=== PATIENT | female | born 1970 | race African-American/Black ===

== ENCOUNTER 2021-05-22 15:57 | Outpatient (REF) | payer MEDICAID, SELFPAY ==
--- NOTE | ~2021-05-22 | MM_ITS ---
EXAMINATION: MM SCREENING DIGITAL BREAST TOMOSYNTHESIS, BILATERAL CLINICAL INFORMATION: Screening. Asymptomatic. Age 51. No known family history breast cancer. No prior mammography. The lifetime risk of breast cancer based on the Tyrer-Cuzick Model is 10%. COMPARISON: None (current study represents initial baseline exam). TECHNIQUE: Digital breast tomosynthesis is performed in both the craniocaudal and mediolateral oblique views along with computer-aided detection (CAD). Synthesized 2D images are generated from the tomosynthesis. FINDINGS: There are scattered areas of fibroglandular density (ACR BI-RADS breast composition Category b). There are no significant masses, abnormal calcifications, or other abnormalities. The axilla and skin contours are unremarkable. MM/MM tomosynthesis screening BI IMPRESSION: No mammographic evidence of malignancy. ASSESSMENT: BI-RADS 1: Negative RECOMMENDATION: Routine annual mammography screening. This patient's information was entered into a reminder system with a target due date for their next mammogram.
== END 2021-05-22 15:58 | disposition home or self-care (01) ==
LOC: HO.MAMMO 15:57
PROVIDERS: PCP Internal Medicine; Visit Provider Internal Medicine
DX: Z12.31 Encounter for screening mammogram for malignant neoplasm of breast (principal)
CPT/HCPCS: 77063; 77067

== ENCOUNTER 2023-04-22 11:06 | Outpatient (REF) | payer MEDICAID, SELFPAY ==
[2023-04-22 14:36] LABS: MANUAL DIFF FLAG NO
[2023-04-22 14:42] LABS: Basophils Percent Auto 0.3 % (0-2); Eosinophils Absolute Auto 0.2 X10*3/uL (0.0-0.4); Eosinophils Percent Auto 2.4 % (0-4); Hematocrit 43.1 % (37.0-47.0); Hemoglobin 14.1 g/dl (12.0-16.0); Imm Gran Abs Auto 0.02 X10*3/uL (0.00-0.03); Imm Gran Pct Auto 0.2 % (0.0-0.4); Lymphocytes Absolute Auto 2.2 X10*3/uL (1.2-4.9); Lymphocytes Percent Auto 25.1 % (20-40); Mean Corpuscular HGB Conc 32.7 g/dl (31.0-35.0); Mean Corpuscular Hemoglobin 31.7 pg (27.0-33.0); Mean Corpuscular Volume 96.9 fL (80.0-98.0); Mean Platelet Volume 10.9 fL (9.4-12.3); Monocytes Absolute Auto 0.7 X10*3/uL (0.1-1.2); Monocytes Percent Auto 7.5 % (2-11); Neutrophils Absolute Auto 5.6 x10*3/uL (2.0-8.3); Neutrophils Percent Auto 64.5 % (45-73); Platelet Count 303 X10*3/uL (160-400); Red Blood Count 4.45 X10*6/uL (4.20-5.50); Red Cell Distribution Width 13.9 % (11.0-16.0); White Blood Count 8.7 X10*3/uL (4.8-10.8)
[2023-04-22 15:12] LABS: Anion Gap 12 (12-20); Blood Urea Nitrogen 15 mg/dL (9-16); Calcium 9.6 mg/dL (8.4-10.2); Carbon Dioxide 27 mmol/L (22-29); Chloride 106 mmol/L (96-108); Estimated Glomerular Filt Rate 58; Glucose Random 74 mg/dL (60-115); Potassium 4.1 mmol/L (3.3-5.1); Sodium 141 mmol/L (135-145)
[2023-04-22 15:19] LABS: TSH reflex Free T4 1.04 uIU/mL (0.32-4.0)
== END 2023-04-22 11:07 | disposition home or self-care (01) ==
LOC: HO.CHCLDS 11:06
PROVIDERS: Visit Provider Internal Medicine
DX: E03.8 Other specified hypothyroidism (principal); L73.2 Hidradenitis suppurativa
CPT/HCPCS: 36415; 80048; 84443; 85025

== ENCOUNTER 2024-12-14 15:33 | Outpatient (REF) | payer MEDICAID, SELFPAY ==
--- OUTSIDE RECORDS SUMMARY | 2024-12-14 15:00 | XMS_ITS | Encounter Summary ---
Author Organization [employer] Address [address] [facility] 7 [place] [address] Care Team Providers Care Aircraft Technician Name Role Phone Aashish Martin MD Primary Care Prov ider Reason for Referral * Imaging (Routine) - Pending Review Specialty Diagnoses / Procedures Referred By Contac t Referred To Contact Radiology Diagnoses Other migraine without status migrainosus, not intractable Procedures CT Head w/o Contrast Kenan Sanchez MD [address] [place] [address] Phone: tel: fax: Referral ID Status Reason Start Date Expiration Date V isits Requested Visits Authorized [id number] Pending Review 12/14/2024 12/14/2025 1 1 Reason for Visit * Reason Comments Headache Encounter Details Date Type Department Care Team ([facility] Contact Info) Description 12/14/2024 3:00 PM EDT Office Visit [facility] MED [facility] PEDS [address] [place] [address] Kenan Sanchez MD [address] [place] [address] Disorder of vision (Primary Dx); Other migraine without status migrainosus, not intractable; Neck pain, acute Social History Tobacco Use Types Packs/Day Years Used Date Smoking Tobacco: Former Cigarettes 0.3 20 0 05/21/2003 - 05/21/2023 Depression Answer Date Recorded Patient Health Questionnaire-9 Score 8 05/16/2024 Patient Health Questionnaire-9 Score 8 05/16/2024 Last PHQ-9: Questionnaire Data Not on file 0 05/16/2024 Housing Stability Answer Date Recorded What is your housing situation today? I have ching barragan 08/12/[address] you li ve. Do you have problems with any of the following? None of the above 08/12/2024 Food Insecurity Answer Date Recorded Within the past 12 months, y ou worried that your food would run out before you got money to buy more: Never True 08/12/2024 Within the past 12 months,th e food you bought just didn't last and you didn't have enough money to get more: Never True Transportation Answer Date Recorded In the past 12 months, has l ack of transportation kept you from medical appts, meetings, work or from getting things needed for daily living? No 08/12/2024 Utilities Answer Date Recorded In the past 12 months, has t he electric, gas, oil or water company threatened to shut off services in your home? No 08/12/2024 Depression Answer Date Recorded Patient Health Questionnaire-2 Score 1 05/16/2024 Internet Access Answer Date Recorded Internet Access Q1 Yes 08/12/2024 Internet Access Q2 Not on file 08/12/2024 Comments Unknown Sex and Gender Information Value Date Recorded Sex Assigned at Female 01/13/2022 10:30 AM EDT Legal Sex Female 10:30 AM EDT Gender Identity Female 01/13/2022 10:30 AM EDT Sexual Orientation Choose not to disclose 2021 10:30 AM EDT documented as of this encounter Last Filed Vital Signs Vital Sign Reading Time Taken Comments Blood Pressure 149/89 12/14/2024 3:16 PM EDT Pulse 72 12/14/2024 3:16 PM EDT Temperature - - Respiratory Rate 20 12/14/2024 3:16 PM EDT Oxygen Saturation - - Inhaled Oxygen Concentration - - Weight 77.6 kg (171 lb) 12/14/2024 3:16 PM EDT Height 163 cm (5' 4.17 ) 12/14/2024 3:16 PM EDT Body Mass Index 29.2 12/14/2024 3:16 PM EDT documented in this encounter Plan of Treatment Upcoming Encounters Date Type Department Care Team (Late st Contact Info) Description 04/17/2025 2:30 PM EST Office Visit [facility] [address] [place] [address] Payton Villanueva, OD [address] [place] [address] Scheduled Orders Name Type Priority Associated Diagnoses Orde r Schedule Hemoglobin A1c Lab Routine Disorder of vision Expected: 12/14/2024 (Approximate), Expires: 12/14/2025 CT Head w/o Contrast Imaging Routine Other migraine without status migrainosus, not intractable Expected: 12/14/2024, Expires: 12/14/2025 documented as of this encounter Visit Diagnoses Diagnosis Disorder of vision- Primary Other migraine without status migrainosus, not intractable Neck pain, acute documented in this encounter Additional Health Concerns Assessment Noted Time PHQ-9 Depression Total Score: 8 05/17/19 25 11:18 AM EST documented as of this encounter Care Teams Aircraft Technician Relationship Specialty Start Date End Date Aashish Martin MD [address] [place] [id number] PCP - General Internal Medicine 08/14/19 Jennie Curtis Venetian Blind MechanicRetail Delivery Driver 08/07/23 documented as of this encounter
--- OUTSIDE RECORDS SUMMARY | 2024-12-14 16:21 | XMS_ITS | Encounter Summary ---
Author Organization [facility] Address [address] [facility] 7t [place] [address] Care Team Providers Care Fishing Rod Trimmer Name Role Phone Aashish Martin MD Primary Care Prov ider Reason for Visit * Reason Comments Med Refill Encounter Details Date Type Department Care Team (Late st Contact Info) Description 12/22/2022 Refill [facility] MEDICINE [address] [place] [address] Aashish Martin MD [address] [place] [address] Social History Tobacco Use Types Packs/Day Years Used Date Smoking Tobacco: Never Assessed Comments Unknown Sex and Gender Information Value Date Recorded Sex Assigned at Female 01/13/2022 10:30 AM EDT Legal Sex Female 10:30 AM EDT Gender Identity Female 01/13/2022 10:30 AM EDT Sexual Orientation Choose not to disclose 2021 10:30 AM EDT documented as of this encounter Plan of Treatment Upcoming Encounters Date Type Department Care Team (Late st Contact Info) Description 04/17/2025 2:30 PM EST Office Visit [facility] OPTOMETRY [address] [place] [address] TarkaPayton, OD [address] [place] [address] documented as of this encounter Visit Diagnoses Not on filedocumented in this encounter Care Teams Fishing Rod Trimmer Relationship Specialty Start Date End Date Aashish Martin MD [address] [place] [address] PCP - General Internal Medicine 08/14/19 Jennie Curtis Publicity ManagerFight Manager 08/07/23 documented as of this encounter
--- OUTSIDE RECORDS SUMMARY | 2024-12-14 16:22 | XMS_ITS | Encounter Summary ---
Author Organization [employer] Address [address] [facility] [address] 7[address] [place] [address] Care Team Providers Care Cooler Servicer Name Role Phone Aashish Martin MD Primary Care Prov ider Reason for Visit * Reason Onset Date Comments Nurse Triage 08/11/2024 Encounter Details Date Type Department Care Team ([facility] Contact Info) Description 08/11/2024 Telephone [facility] MEDICINE [address] [place] [address] Aashish Martin MD [address] [place] [address] Nurse Triage Social History Tobacco Use Types Packs/Day Years [...] AM EDT documented as of this encounter Miscellaneous Notes * Telephone Encounter - Olivia Apodaca RN - 08/11/2024 11:50 AM EDT called pt to triage, spoke to pt. pt states since going off Tirosint due to insurance issues, pt has been on Levothyroxine. pt states since being off the Tirosint, she has been having intermittent dizziness, light headedness, nausea, fatigue, and headaches. pt states has not had Thyroid lab tests for a while, and requesting to do labs to check thyroid. given TC appt tomorrow with PCP at 9L45 to discuss. advised to call back if worsening or new concerns. pt states will go to the ER in the meantime if she gets worse. given caution regarding ER visits. pt understands and agrees with plan. insurance verified. Protocol Used: Dizziness (Adult) Protocol-Based Disposition: See in Office or Video Visit within 3 Days Positive Triage Question: * Mild dizziness (e.g., walking normally) and has NOT been evaluated by physician for this (Exception: Dizziness caused by heat exposure, sudden standing, or poor fluid intake.) * All higher-acuity triage questions were negative Care Advice Discussed: * Reassurance and Education - Dizziness From Not Drinking Enough Liquids * Drink Fluids * Lie Down and Rest * Cool Off * Prevention - Dizziness * Reasons To Call Back - After 2 hours of rest and fluids and you are still feeling dizzy - You pass out (faint) or are too weak to stand - You become worse * Telephone Encounter - Romie Baer - 08/11/2024 10:46 AM EDT Symptoms: Vomiting, Dizziness Outcome: Talk to a nurse or provider within 15 minutes Reason: Trouble walking Please contact pt at [phone]. documented in this encounter Plan of Treatment Upcoming Encounters Date Type Department Care Team (Late st Contact Info) Description 04/17/2025 2:30 PM EST Office Visit [facility] OPTOMETRY [address] [place] [address] Payton Villanueva, OD [address] [place] [address] documented as of this encounter Visit Diagnoses Not on filedocumented in this encounter Additional Health Concerns Assessment Noted Time PHQ-9 Depression Total Score: 8 05/17/19 25 11:18 AM EST documented as of this encounter Care Teams Cooler Servicer Relationship Specialty Start Date End Date Aashish Martin MD [address] [place] [address] PCP - General Internal Medicine 08/14/19 Jennie Curtis Geospatial Image AnalystLang Path Therapist 08/07/23 documented as of this encounter
--- OUTSIDE RECORDS SUMMARY | 2024-12-14 16:22 | XMS_ITS | Encounter Summary ---
Author Organization [employer] Address [address] [facility] [address] 7[address] [place] [address] Care Team Providers Care Bridge Repairer Name Role Phone Aashish Martin MD Primary Care Prov ider Encounter Details Date Type Department Care Team (Latest Contact Info) Description 12/14/2024 Travel Social History Tobacco Use Types Packs/Day Years Used Date Smoking Tobacco: Former Cigarettes 0.3 20 0 05/21/2003 - 05/21/2023 Depression Answer Date Recorded Patient Health Questionnaire-9 Score 8 05/16/2024 Patient Health Questionnaire-9 Score 8 05/16/2024 Last PHQ-9: Questionnaire Data Not on file 0 05/16/2024 Housing Stability Answer Date Recorded What is your housing situation today? I have ching laurel 08/12/[address] you li [...] Description 04/17/2025 2:30 PM EST Office Visit [facility] OPTOMETRY [address] [place] [address] TarkaPayton, OD [address] [place] [address] documented as of this encounter Visit Diagnoses Not on filedocumented in this encounter Additional Health Concerns Assessment Noted Time PHQ-9 Depression Total Score: 8 05/17/19 25 11:18 AM EST documented as of this encounter Care Teams Bridge Repairer Relationship Specialty Start Date End Date Aashish Martin MD [address] [place] [address] PCP - General Internal Medicine 08/14/19 Jennie Curtis Layer OffRenal Dialysis Rn 08/07/23 documented as of this encounter
--- OUTSIDE RECORDS SUMMARY | 2024-12-14 16:22 | XMS_ITS | Encounter Summary ---
Author Organization [employer] Address [address] [facility] [address] 7t [place] [address] Care Team Providers Care Associate School Psychologist Name Role Phone Aashish Martin MD Primary Care Prov ider Reason for Visit * Reason Onset Date Comments No Show 12/14/2024 Encounter Details Date Type Department Care Team ([facility] Contact Info) Description 12/14/[address] [facility] MEDICINE [address] [place] [address] Kenan Sanchez MD [address] [place] [address] No Show Social History Tobacco Use Types Packs/Day Years [...] encounter Miscellaneous Notes * Telephone Encounter - Alyssa Allen RN - 12/14/2024 12:01 PM EDT TC to pt to status check after NS to appointment this morning for headaches and bruising under lefteye. Pt stated that she is currently on her way into the office for her appointment she states is at 12:30 PM. Author advised that office is closed at 12:30 PM and can rescheduled missed appointment for SDC at 3 PM today. Pt verbalized understanding and agreement to plan * Telephone Encounter - Alvino Hauser - 12/14/2024 11:37 AM EDT No show 12/14/24 documented in this encounter Plan of Treatment Upcoming Encounters Date Type Department Care Team (Late st Contact Info) Description 04/17/2025 2:30 PM EST Office Visit [facility] [address] [place] [address] Payton Villanueva, OD [address] [place] [address] documented as of this encounter Visit Diagnoses Not on filedocumented in this encounter Additional Health Concerns Assessment Noted Time PHQ-9 Depression Total Score: 8 05/17/19 25 11:18 AM EST documented as of this encounter Care Teams Associate School Psychologist Relationship Specialty Start Date End Date Aashish Martin MD [address] [place] [address] PCP - General Internal Medicine 08/14/19 Jennie Curtis Collections DirectorWedding Cake Designer 08/07/23 documented as of this encounter
--- OUTSIDE RECORDS SUMMARY | 2024-12-14 16:22 | XMS_ITS | Encounter Summary ---
Author Organization [employer] Address [address] [facility] 7t [place] [address] Care Team Providers Care Acid Concentrator Name Role Phone Aashish Martin MD Primary Care Prov ider Reason for Visit * Reason Onset Date Comments ER Follow-up 07/15/2023 Encounter Details Date Type Department Care Team ([facility] st Contact Info) Description 07/15/[address] [facility] MEDICINE [address] [place] [address] Aashish Martin MD [address] [place] [address] ER Follow-up Social History Tobacco Use Types Packs/Day Years Used Date Smoking Tobacco: Former Cigarettes 0.3 20 0 05/21/2003 - 05/21/2023 Comments Unknown Sex and Gender Information Value Date Recorded Sex Assigned at Female 01/13/2022 10:30 AM EDT Legal Sex Female 10:30 AM EDT Gender Identity Female 01/13/2022 10:30 AM EDT Sexual Orientation Choose not to disclose 2021 10:30 AM EDT documented as of this encounter Miscellaneous Notes * Telephone Encounter - Wing Mikey RN - 07/15/2023 12:23 PM EDT Tc to pt regarding ED visit. Pt repots itchy rash on both arms and chest that started on 07/08 afterdrinking dragon fruit drink from [employer]. Denies any rash on throat or trouble breathing. Confirmed with pt current allergies of dimethylamine and shrimp extract. Pt went to [facility] but left before being seen by any provider so there is no ED note. Rash is still present and itchy now. Pt only has been putting hydrocortisone cream on rashes with little relief. Scheduled pt today with Dr. Patino for 3:40 pm. Advised pt to go back to ED if rash is on her throat or she has trouble breathing. Pt verbalized understanding and agreement with plan. * Telephone Encounter - Andrey Raya - 07/15/2023 11:09 AM EDT Patient calling to report ED visit on : Date: 07/08 Hospital: [facility] Seen for: Allergic reaction , rashes Patient advised will forward to team nurse for follow up documented in this encounter Plan of Treatment Upcoming Encounters Date Type Department Care Team (Late st Contact Info) Description 04/17/2025 2:30 PM EST Office Visit [facility] OPTOMETRY [address] [place] [address] Payton Villanueva, OD [address] [place] [address] documented as of this encounter Visit Diagnoses Not on filedocumented in this encounter Care Teams Acid Concentrator Relationship Specialty Start Date End Date Aashish Martin MD [address] [place] [id number] PCP - General Internal Medicine 08/14/19 Jennie Curtis Nuclear Waste Process OperatorReference Librarian 08/07/23 documented as of this encounter
--- OUTSIDE RECORDS SUMMARY | 2024-12-14 16:22 | XMS_ITS | Encounter Summary ---
Author Organization [employer] Address [address] [facility] 7t [place] [address] Care Team Providers Care Featherer Name Role Phone Aashish Martin MD Primary Care Prov ider Reason for Referral * Imaging (Routine) - Closed Specialty Diagnoses / Procedures Referred By Contac t Referred To Contact Radiology Diagnoses Subareolar mass of right breast Procedures BI Mammogram Diagnostic Tomosynthesis added right Kenan Sanchez MD [address] [place] [address] Phone: tel: fax: [address] Phone: tel: fax: Referral ID Status Reason Start Date Expiration Date Visits Re quested Visits Authorized [id number] Closed 07/20/2024 07/20/2025 1 1 Encounter Details Date Type Department Care Team (Late st Contact Info) Description 07/20/2024 Orders Only [facility] CHC MED & PEDS [address] [place], [place] [phone] Kenan Sanchez MD [address] [place], [place] [phone] Subareolar mass of right breast (Primary Dx) Social History Tobacco Use Types Packs/Day Years Used Date Smoking Tobacco: Former Cigarettes 0.3 20 0 05/21/2003 - 05/21/2023 Depression Answer Date Recorded Patient Health Questionnaire-9 Score 8 05/16/2024 Patient Health Questionnaire-9 Score 8 05/16/2024 Last PHQ-9: Questionnaire Data Not on file 0 05/16/2024 Depression Answer Date Recorded Patient Health Questionnaire-2 Score 1 05/16/2024 Comments Unknown Sex and Gender Information Value [...] Description 04/17/2025 2:30 PM EST Office Visit [facility] OPTOMETRY [address] [place], [place] [id number] Payton Villanueva, OD [address] [place] [address] Scheduled Orders Name Type Priority Associated Diagnoses Orde r Schedule BI Mammogram Diagnostic Tomosynthesis added right Imaging Routine Subareolar mass of right breast Expected: 07/20/2024, Expires: 09/19/2025 documented as of this encounter Visit Diagnoses Diagnosis Subareolar mass of right breast- Primary documented in this encounter Additional Health Concerns Assessment Noted Time PHQ-9 Depression Total Score: 8 05/17/19 25 11:18 AM EST documented as of this encounter Care Teams Featherer Relationship Specialty Start Date End Date Aashish Martin MD [address] [place] [address] PCP - General Internal Medicine 08/14/19 Jennie Curtis Food And Beverage AssociateIt Quality Assurance Analyst 08/07/23 documented as of this encounter
--- OUTSIDE RECORDS SUMMARY | 2024-12-14 16:22 | XMS_ITS | Clinical Summary ---
Author Organization [employer] Address [address] [facility] 7t [place] [address] Care Team Providers Care Renewable Energy Consultant Name Role Phone Aashish Martin MD Primary Care Prov ider Allergies Active Allergy Reactions Criticality Noted Date Comments 2,4-D Dimethylamine 12/30/2022 Other reaction(s): itchy Amoxicillin 10/14/2023 Other Reaction(s): severe itching Cephalexin Itching 10/29/2020 Hydrocodone 01/17/2016 Hydrocodone-Acetaminophen 02/14/2011 Other Reaction(s): OTHER, Rash/Dermatitis Ringing ears Ketorolac Tromethamine 10/14/2023 Other Reaction(s): itching Pineapple 10/14/2023 Shrimp Extract 12/30/2022 Sulfamethoxazole 02/22/2016 Other Reaction(s): Unknown Sulfamethoxazole-Trimethoprim Itching 2020 Tramadol Swelling 10/07/2011 Other Reaction(s): severe headache Trimethoprim 02/22/2016 Other Reaction(s): Unknown Medications cholecalcifero l (Vitamin D3) 25 MCG (1000 UT) tablet TAKE 1 TABLET BY MOUTH DAILY 30 tablet 2 08/08/19 23 Active cholecalcifero l (Vitamin D3) 25 MCG (1000 UT) tablet TAKE 1 TABLET BY MOUTH DAILY 02/02/20 22 Active venlafaxine XR (Effexor XR) 37.5 MG 24 hr capsuleIndicat ions:Menopausa l symptoms Take 1 capsule (37.5 mg) by mouth in the morning. Do not crush or chew. 30 capsule 11 12/31/19 23 Active doxycycline (Vibramycin) 100 MG capsuleIndicat ions:Hidradeni tis suppurativa of multiple sites Take 1 capsule (100 mg) by mouth 2 times daily. Take with at least 8 ounces (large glass) of water, do not lie down for 30 minutes after 60 capsule 3 05/17/19 25 Active levothyroxine (Synthroid) 100 MCG tablet Take 1 tablet (100 mcg) by mouth before breakfast. 30 tablet 11 07/19/19 25 Active Chlorhexidine Gluconate (Hibiclens) 4 % solutionIndica tions:Follicul itis Apply to wet area, let the medication in place x a few minutes and rinse thoroughly 2 times a day. 118 mL 1 07/20/19 25 Active gabapentin (Neurontin) 800 MG tablet TAKE 1 TABLET BY MOUTH THREE TIMES DAILY 90 tablet 1 09/10/19 25 Active traZODone (Desyrel) 50 MG tablet TAKE 1 TABLET(50 MG) BY MOUTH AT BEDTIME 30 tablet 11/19/19 25 Active SUMAtriptan (Imitrex) 50 MG tabletIndicati ons:Disorder of vision Take 1 tablet (50 mg) by mouth 1 (one) time if needed for migraine for up to 1 dose. May repeat dose once in 2 hours if no relief. Do not exceed 2 doses in 24 hours. 9 tablet 12/15/19 25 Active tiZANidine (Zanaflex) 4 MG tabletIndicati ons:Disorder of vision Take 1 tablet (4 mg) by mouth every 8 (eight) hours if needed for muscle spasms for up to 10 days. 30 tablet 12/15/19 25 025 Active capsaicin (Zostrix) 0.025 % creamIndicatio ns:Neck pain, acute Apply topically 2 times daily. 56.6 g 3 12/15/19 25 026 Active SUMAtriptan (Imitrex) 50 MG tablet Take 1 tablet (50 mg) by mouth 1 (one) time if needed for migraine for up to 1 dose. May repeat dose once in 2 hours if no relief. Do not exceed 2 doses in 24 hours. 9 tablet 10/14/19 25 025 Discontinued(Re order (will not trigger notification to Pharmacy)) traZODone (Desyrel) 50 MG tablet Take 1 tablet (50 mg) by mouth at bedtime. 30 tablet 10/14/19 25 025 Discontinued Active Problems Problem Noted Date Diagnosed Date Ingrown toenail 10/13/2024 Assessment & Plan (10/13/2024 10:35 AM EDT): Will refer to podiatry for evaluation Abnormal gait 10/14/2023 Depressive disorder 10/14/2023 Disorder of vision 10/14/2023 History of hysterectomy for benign disease 10/13 History of subtotal thyroidectomy 10/14/2023 Multiple joint pain 10/14/2023 Nicotine dependence 10/14/2023 Obstructive sleep apnea syndrome 10/14/2023 Hidradenitis suppurativa of multiple sites 04/22 Other specified hypothyroidism 04/22/2023 Assessment & Plan (08/26/2024 11:23 AM EDT): Will renew thyroid hormone replacement, told to take it daily, new lab orders placed, follow up In 2 months Primary osteoarthritis of fi rst carpometacarpal joint of right hand 06/16/2022 Paronychia of right thumb 04/22/2021 Trigger finger of all digits of right hand 04/22 Opiate misuse 02/27/2015 Overview (10/14/2023): NO FURTHER OPIATE BY [facility] DUE TO MISUSE OF OPIATE. FOR DETAILS SEE CORRESPONDENCE FROM 02/27/15. Dysphagia 06/19/2011 Overview (10/14/2023): Achalasia like disorder--> Cuba Mack MD. H. 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 Cocaine abuse 01/16/2009 Substance abuse (CMS/[facility]) 01/16/2009 Overview (10/14/2023): 01/22 UDS + cocaine, marijuana Tobacco use disorder 01/16/2009 Hypothyroidism 01/16/2009 Encounters Date Type Department Care Team Description 12/14/2024 3:00 PM EDT Office Visit [facility] MED & PEDS [address] [place] [address] Kenan Sanchez MD Disorder of vision (Primary Dx); Other migraine without status migrainosus, not intractable; Neck pain, acute 12/14/2024 Travel 12/14/2024 Telephone [facility] [address] [place] [address] Kenan Sanchez MD No Show 12/12/2024 Telephone [facility] [address] [place] [address] Aashish Martin MD Nurse Triage 11/18/2024 Refill [facility] PEDS [address] [place] [address] Aashish Martin MD 10/13/2024 10:15 AM EDT Telemedicine [facility] MED & PED[facility] [address] [place] [address] Aashish Martin MD Acquired hypothyroidism (Primary Dx); Ingrown toenail 10/13/2024 Travel 10/12/2024 Telephone [facility] MED & PEDS [address] [place] [address] Aashish Martin MD chart prep from Last 3 Months Social History Tobacco Use Types Packs/Day Years Used Date Smoking Tobacco: Former Cigarettes 0.3 20 0 05/21/2003 - 05/21/2023 Tobacco Cessation:Counseling Given: Not Answered Depression Answer Date Recorded Patient Health Questionnaire-9 [...] not to disclose 2021 10:30 AM EDT Last Filed Vital Signs Vital Sign Reading Time Taken Comments Blood Pressure 149/89 12/14/2024 3:16 PM EDT Pulse 72 12/14/2024 3:16 PM EDT Temperature 36.7 C (98 F) 07/19/2024 2:29 PM EDT Respiratory Rate 20 12/14/2024 3:16 PM EDT Oxygen Saturation 97% 07/19/2024 2:29 PM EDT Inhaled Oxygen Concentration - - Weight 77.6 kg (171 lb) 12/14/2024 3:16 PM EDT Height 163 cm (5' 4.17 ) 12/14/2024 3:16 PM EDT Body Mass Index 29.2 12/14/2024 3:16 PM EDT Plan of Treatment Upcoming Encounters Date Type Department Care Team (Late st Contact Info) Description 04/17/2025 2:30 PM EST Office Visit [facility] [address] [place], [place] [phone] Payton Villanueva, OD [address] [place] [address] Health Maintenance Due Date Last Done Comments CT Colonography 1969 Colonoscopy 1969 Colorectal Cancer Screening 1969 FIT DNA/Cologuard 1969 FIT 1969 FOBT 1969 HIV Screening 1969 Sigmoidoscopy 1969 Disability Screening 1969 Hepatitis C Screening 1987 DTaP/Tdap/Td Vaccines (1 - Tdap) 1988 Hepatitis B Vaccines (1 of 3 - 19+ 3-dose series) 1988 Pap Smear 1990 Cervical Cancer Screening 1999 HPV/Cotest 1999 Pneumococcal Vaccine: 50+ Years (1 of 1 - PCV) 2019 Zoster Vaccines (1 of 2) 2019 Mammogram 06/08/2024 06/09/2023, 05/22/2021 COVID-19 Vaccine (4 - 2024-2 6 season) 2024 05/15/2022, 10/23/2020, 10/02/2020 Influenza Vaccine (#1) 2024 Alcohol/Substance Use Screening 05/16/2025 05/16/2024 Depression Screening 05/16/2025 05/16/2024, 05/16/2024 Tobacco Screening 07/20/2025 07/20/2024 SDOH Screening 08/12/2025 08/12/2024 RSV Patients and Patients Aged 60 years or older (1 - 1-dose 75+ series) 2044 HIB Vaccines Aged Out No longer eligi ble based on patient's age to complete this topic HPV Vaccines Aged Out No longer eligi ble based on patient's age to complete this topic Hepatitis A Vaccines Aged Out No long er eligible based on patient's age to complete this topic IPV Vaccines Aged Out No longer eligi ble based on patient's age to complete this topic Meningococcal B Vaccine Aged Out No l onger eligible based on patient's age to complete this topic Meningococcal Vaccine Aged Out No fuentes monique eligible based on patient's age to complete this topic RSV under 20 months Aged Out No longe r eligible based on patient's age to complete this topic Rotavirus Vaccines Aged Out No longer eligible based on patient's age to complete this topic Procedures Procedure Name Priority Date/Time Associated Diagnosis Comments BI US BREAST LIMITED RIGHT Urgent 06/09/2023 Breast pain, right from Last 3 Months or Most Recently Relevant to Health Maintenance Results * BI US Breast Limited Right (06/09/2023) Anatomical Region Laterality Modality Breast Right Ultrasound us Kenan Sanchez MD [facility] US PROCEDURES Final Res ult from Last 3 Months or Most Recently Relevant to Health Maintenance Insurance C3 Care Teams Renewable Energy Consultant Relationship Specialty Start Date End Date Aashish Martin MD [address] [place] [id number] PCP - General Internal Medicine 08/14/19 Jennie Curtis Sheet Metal Shop ForemanMarble Cleaner 08/07/23
--- OUTSIDE RECORDS SUMMARY | 2024-12-14 16:22 | XMS_ITS | Encounter Summary ---
Author Organization [employer] Address [address] [facility] 7t [place] [address] Care Team Providers Care Warper Tender Name Role Phone Aashish Martin MD Primary Care Prov ider Encounter Details Date Type Department Care Team (Late Contact Info) Description 04/09/2022 Orders Only [facility] [address] [place] [address] Aashish Martin MD [address] [place], [place] [phone] Acquired hypothyroidism (Primary Dx) Social History Tobacco Use Types [...] Encounters Date Type Department Care Team (Late Contact Info) Description 04/17/2025 2:30 PM EST Office Visit [facility] OPTOMETRY [address] [place] [address] TarPayton gaytan, OD [address] [place] [address] documented as of this encounter Visit Diagnoses Diagnosis Acquired hypothyroidism- Primary Unspecified hypothyroidism documented in this encounter Care Teams Warper Tender Relationship Specialty Start Date End Date Aashish Martin MD [address] [place], [place] [phone] PCP - General Internal Medicine 08/14/19 Jennie Curtis Welfare Eligibility WorkerRod Puller And Coiler 08/07/23 documented as of this encounter
--- OUTSIDE RECORDS SUMMARY | 2024-12-14 16:22 | XMS_ITS | Encounter Summary ---
Author Organization [employer] Address [address] [place] [address] 7t [place] [address] Care Team Providers Care Carbide Powder Processor Name Role Phone Aashish Martin MD Primary Care Prov ider Reason for Visit * Reason Comments Med Refill Encounter Details Date Type Department Care Team (Late Contact Info) Description 08/20/2023 Refill [facility]EDS [address] [place], [place] [phone] Aashish Martin MD [address] [place], [place] [phone] Social History Tobacco Use Types Packs/Day Years [...] Description 04/17/2025 2:30 PM EST Office Visit [facility] OPT[facility] [address] [place], [place] [phone] Payton Villanueva OD [address] [place] [address] documented as of this encounter Visit Diagnoses Not on filedocumented in this encounter Care Teams Carbide Powder Processor Relationship Specialty Start Date End Date Aashish Martin MD [address] [place] [address] PCP - General Internal Medicine 08/14/19 Jennie Curtis Customer Relations AssistantWeather Stripper 08/07/23 documented as of this encounter
--- OUTSIDE RECORDS SUMMARY | 2024-12-14 16:22 | XMS_ITS | Encounter Summary ---
Author Organization [employer] Address [address] [facility] 7t [place] [address] Care Team Providers Care Weed Inspector Name Role Phone Aashish Martin MD Primary Care Prov ider Encounter Details Date Type Department Care Team (Late st Contact Info) Description 08/07/2022 Orders Only [facility] MED & PEDS [address] [place] [address] Tete Wallace LPN Social History Tobacco Use Types Packs/Day Years [...] Description 04/17/2025 2:30 PM EST Office Visit [facility] OPTOM[facility]RY [address] [place] [address] Payton Villanueva, OD [address] [place] [address] documented as of this encounter Visit Diagnoses Not on filedocumented in this encounter Care Teams Weed Inspector Relationship Specialty Start Date End Date Aashish Martin MD [address] [place] [address] PCP - General Internal Medicine 08/14/19 Jennie Curtis Suit AttendantSales Operations Specialist 08/07/23 documented as of this encounter
--- OUTSIDE RECORDS SUMMARY | 2024-12-14 16:22 | XMS_ITS | Encounter Summary ---
Author Organization [employer] Address [address] [facility] 7t [place] [address] Care Team Providers Care Orthopedic Dentist Name Role Phone Aashish Martin MD Primary Care Prov ider Encounter Details Date Type Department Care Team (Late st Contact Info) Description 07/18/2024 Orders Only [facility] [address] [place] [address] Aashish Martin MD [address] [place] [address] Social History Tobacco Use Types Packs/Day Years [...] Description 04/17/2025 2:30 PM EST Office Visit [facility] [address] [place] [address] Payton Villanueva, OD [address] [place] [address] documented as of this encounter Visit Diagnoses Not on filedocumented in this encounter Additional Health Concerns Assessment Noted Time PHQ-9 Depression Total Score: 8 05/17/19 25 11:18 AM EST documented as of this encounter Care Teams Orthopedic Dentist Relationship Specialty Start Date End Date Aashish Martin MD [address] [place] [address] PCP - General Internal Medicine 08/14/19 Jennie Curtis Rivet TosserDirector Of Enrollment 08/07/23 documented as of this encounter
--- OUTSIDE RECORDS SUMMARY | 2024-12-14 16:22 | XMS_ITS | Encounter Summary ---
Author Organization [employer] Address [address] [place] [address] 7t [place] [address] Care Team Providers Care Mill Operator Head Name Role Phone Aashish Martin MD Primary Care Prov ider Reason for Visit * Reason Comments Med Refill Encounter Details Date Type Department Care Team (Late Contact Info) Description 06/13/2024 Refill [facility] MED & PEDS [address] [place], [place] [phone] Aashish Martin MD [address] [place], [place] [phone] Acquired hypothyroidism Social History Tobacco Use Types Packs/Day Years [...] PM EST Office Visit [facility] [address] [place], [place] [phone] Payton Villanueva, OD [address] [place], [place] [phone] documented as of this encounter Visit Diagnoses Diagnosis Acquired hypothyroidism Unspecified hypothyroidism documented in this encounter Additional Health Concerns Assessment Noted Time PHQ-9 Depression Total Score: 8 05/17/19 25 11:18 AM EST documented as of this encounter Care Teams Mill Operator Head Relationship Specialty Start Date End Date Aashish Martin MD [address] [place] [address] PCP - General Internal Medicine 08/14/19 Jennie Curtis Manager MembershipField Adjuster 08/07/23 documented as of this encounter
--- OUTSIDE RECORDS SUMMARY | 2024-12-14 16:22 | XMS_ITS | Encounter Summary ---
Author Organization [employer] Address [address] [facility] [address] 7t [place] [address] Care Team Providers Care Restaurant Mgr Name Role Phone Aashish Martin MD Primary Care Prov ider Reason for Visit * Reason Onset Date Comments Nurse Triage 12/12/2024 Encounter Details Date Type Department Care Team ([facility] st Contact Info) Description 12/12/2024 Telephone [facility] [address] [place] [address] Aashish Martin MD [address] [place] [address] Nurse Triage Social History Tobacco Use Types [...] Telephone Encounter - Olivia Apodaca RN - 12/12/2024 2:18 PM EDT called pt to triage, spoke to pt. pt states several days duration of increasing headaches. pt states mild bruising under her left eye with tearing. pt denies known injury, illness symptoms, blurred vision, fevers, severe pain, vomiting, or other associated symptoms. given appt with [facility] provider Thursday at 11:30 for exam. advised home care: rest, fluids, OTC as needed Imitrex as needed and call back if worsening or new concerns. pt understands and agrees with plan. insurance verified. Protocol Used: Headache (Adult) Protocol-Based Disposition: See in Office or Video Visit within 3 Days Video visit offer not recorded Positive Triage Question: * Mild - Moderate headache present > 3 days (72 hours) * All higher-acuity triage questions were negative Care Advice Discussed: * Reassurance and Education - Migraine Headache * Pain Medicine for Migraine * Pain Medicines * Pain Medicines - Extra Notes and Warnings * Rest for Migraine Headache * Cold Pack for Headache * Headache Diary * Reasons To Call Back - Severe headache lasts over 2 hours after pain medicine - Headache lasts over 72 hours - Stiff neck occurs (can't touch chin to chest) - You become worse * Telephone Encounter - Carmen Luque - 12/12/2024 2:01 PM EDT Symptom: Headache Outcome: Transfer to a nurse or provider NOW! Reason: Sudden worst headache of life now The caller accepted this outcome. Contact pt at [phone] documented in this encounter Plan of Treatment Upcoming Encounters Date Type Department Care Team (Late st Contact Info) Description 04/17/2025 2:30 PM EST Office Visit [facility] OPT[facility] [address] [place], [place] [phone] Payton Villanueva, OD [address] [place] [address] documented as of this encounter Visit Diagnoses Not on filedocumented in this encounter Additional Health Concerns Assessment Noted Time PHQ-9 Depression Total Score: 8 05/17/19 25 11:18 AM EST documented as of this encounter Care Teams Restaurant Mgr Relationship Specialty Start Date End Date Aashish Martin MD [address] [place] [address] PCP - General Internal Medicine 08/14/19 Jennie Curtis Visual Merchandising AssistantPress Operator Carbon Products 08/07/23 documented as of this encounter
--- OUTSIDE RECORDS SUMMARY | 2024-12-14 16:22 | XMS_ITS | Encounter Summary ---
Author Organization [employer] Address 75 [facility] 7t [place] [address] Care Team Providers Care Physician Assistant Name Role Phone Aashish Martin MD Primary Care Prov ider Reason for Visit * Reason Onset Date Comments ER Follow-up 09/08/2022 Encounter Details Date Type Department Care Team ([facility] st Contact Info) Description 09/08/2022 Telephone [facility] MED & PEDS [address] [place], [place] [phone] Aashish Martin MD [address] [place] [address] ER Follow-up Social History Tobacco Use Types [...] encounter Miscellaneous Notes * Telephone Encounter - Josette Cruz RN - 09/12/2022 10:48 AM EDT T/C to [phone] for below message, pt. Had ED visit at [facility] on 09/02 for Abscess on right leg. Pt. Was schedule for Ed visit on 09/19/2022. Pt. Advised to go to nearest Ed in case of anynew or returning symptoms. Ed summery is in pt.'s chart. [facility] centers hours are reviewed. Pt. Verbally agreed and understood. * Telephone Encounter - Erin Guerrero - 09/08/2022 4:30 PM EDT [facility] pt was seen at [facility] on 09/02/22 and was diagnosed with an abscess on her right leg. Was prescribed two antibiotics but pt is allergic to one of the antibiotics. Requesting a f/u with pt in regards to antibiotics and if a different medication can be given. Please contact pt at [phone] documented in this encounter Plan of Treatment Upcoming Encounters Date Type Department Care Team (Late st Contact Info) Description 04/17/2025 2:30 PM EST Office Visit [facility] OPTOM[facility] [address] [place], [place] [phone] TarPayton gaytan, OD [address] [place] [address] documented as of this encounter Visit Diagnoses Not on filedocumented in this encounter Care Teams Physician Assistant Relationship Specialty Start Date End Date Aashish Martin MD [address] [place] [address] PCP - General Internal Medicine 08/14/19 Jennie Curtis Battery Charger TesterMercerizing Range Controller 08/07/23 documented as of this encounter
--- OUTSIDE RECORDS SUMMARY | 2024-12-14 16:22 | XMS_ITS | Encounter Summary ---
Author Organization [employer] Address 75 [facility] 7t [place] [address] Care Team Providers Care Senior Tax Accountant Name Role Phone Aashish Martin MD Primary Care Prov ider Reason for Referral * Imaging (Routine) - Closed Specialty Diagnoses / Procedures Referred By Contmendoza t Referred To Contact Radiology Diagnoses Breast pain, right Procedures US Guided Fluid Drainage Kenan Sanchez MD [address] [place] [address] Phone: tel: fax: Referral ID Status Reason Start Date Expiration Date Visits Re quested Visits Authorized [id number] Closed 06/11/2023 06/10/2024 1 1 Encounter Details Date Type Department Care Team (Late st Contact Info) Description 06/11/2023 Orders Only [facility] MED & PEDS [address] [place] [address] Kenan Sanchez MD [address] [place] [address] Breast pain, right (Primary Dx) Social History Tobacco Use Types [...] EST Office Visit [facility] [address] [place] [address] Payton Villanueva, OD [address] [place] [address] documented as of this encounter Procedures Procedure Name Priority Date/Time Associated Diagnosis Comments US GUIDED FLUID DRAINAGE Routine 06/12/2023 Breast pain, right documented in this encounter Results * US Guided Fluid Drainage (06/12/2023) Anatomical Region Laterality Modality Ultrasound us Kenan Sanchez MD IMG US PROCEDURES Final Res ult documented in this encounter Visit Diagnoses Diagnosis Breast pain, right- Primary documented in this encounter Care Teams Senior Tax Accountant Relationship Specialty Start Date End Date Aashish Martin MD [address] [place] [address] PCP - General Internal Medicine 08/14/19 Jennie Curtis Security EscortPoolroom/Poolhall Manager 08/07/23 documented as of this encounter
--- OUTSIDE RECORDS SUMMARY | 2024-12-14 16:22 | XMS_ITS | Encounter Summary ---
Author Organization [employer] Address [address] [facility] 7t [place] [address] Care Team Providers Care Corrugator Operator Name Role Phone Aashish Martin MD Primary Care Prov ider Encounter Details Date Type Department Care Team (Late Contact Info) Description 12/31/2022 Orders Only [facility] MED [facility] PEDS [address] [place], [place] [phone] Aashish Martin MD [address] [place], [place] [phone] Social History Tobacco Use Types Packs/Day Years Used Date Smoking Tobacco: Unknown Comments Unknown Sex and Gender Information Value [...] EST Office Visit [facility] OPTOMETRY [address] [place] [address] Tarka, Payton, OD [address] [place] [address] documented as of this encounter Visit Diagnoses Not on filedocumented in this encounter Care Teams Corrugator Operator Relationship Specialty Start Date End Date Aashish Martin MD [address] [place] [address] PCP - General Internal Medicine 08/14/19 Jennie Curtis Funeral CounselorHome Appliances Mechanic 08/07/23 documented as of this encounter
--- OUTSIDE RECORDS SUMMARY | 2024-12-14 16:22 | XMS_ITS | Encounter Summary ---
Author Organization [employer] Address [address] [facility] [address] [place] [address] Care Team Providers Care Victims Advocate Clerk/Specialist Name Role Phone Aashish Martin MD Primary Care Prov ider Reason for Visit * Reason Onset Date Comments Prior Authorization 06/13/2024 Encounter Details Date Type Department Care Team ([facility] st Contact Info) Description 06/13/2024 Telephone [facility] MEDIC[facility] [address] [place] [address] Aashish Martin MD [address] [place] [address] Prior Authorization Social History Tobacco Use Types Packs/Day Years [...] encounter Miscellaneous Notes * Telephone Encounter - Nancy Tripathi LPN - 06/17/2024 10:28 AM EDT Please change medication to Tirosint 100 MCG TABLET for 20 tab for 30 day Please discontinue current medication . Tc from Pharmacy stating that medication Tirosint 100 MCG capsule. Will be needing a PA. Contact Pharmacy at [phone] * Telephone Encounter - Iker Hitchcock - 06/13/2024 2:12 PM EDT Tc from Pharmacy stating that medication Tirosint 100 MCG capsule. Will be needing a PA. Contact Pharmacy at [phone] documented in this encounter Plan of Treatment Upcoming Encounters Date Type Department Care Team (Late st Contact Info) Description 04/17/2025 2:30 PM EST Office Visit [facility] OPTOMETRY [address] [place], [place] [id number] Tar[place] gaytan, OD [address] [place] [address] documented as of this encounter Visit Diagnoses Not on filedocumented in this encounter Additional Health Concerns Assessment Noted Time PHQ-9 Depression Total Score: 8 05/17/19 25 11:18 AM EST documented as of this encounter Care Teams Victims Advocate Clerk/Specialist Relationship Specialty Start Date End Date Aashish Martin MD [address] [place] [id number] PCP - General Internal Medicine 08/14/19 [facility] [employer] ExecutiveAccountant Certified Public 08/07/23 documented as of this encounter
--- OUTSIDE RECORDS SUMMARY | 2024-12-14 16:22 | XMS_ITS | Clinical Summary ---
Author Organization [address] [place] [address] Address [address] [place] [address] Phone Care Team Providers Care Disc Ruler Operator Name Role Phone Aashish Martin Primary Care Provide r Surgical History Surgery Date Site/Laterality Comments OTHER SURGICAL HISTORY PROCEDURE: [place] DILATION & CURETTAGE DX&/THER NONOBSTETRIC OTHER SURGICAL HISTORY 12/21 PROCEDURE: ---- OTHER ----; COMMENT: ?hyperthyroidism surgery ESOPHAGOGASTRODUODENOSCOPY 01/25/10 Eva PROCEDURE: [place] ESOPHAGOGASTRODUODENOSCOPY TRANSORAL DIAGNOSTIC; COMMENT: normal CARPAL TUNNEL RELEASE 08/27/2020 Right PROCEDURE: [place] NEUROPLASTY &/TRANSPOS MEDIAN NRV CARPAL TUNNE; COMMENT: Right eCTR with Dr. Abel Medical History Medical History Date Comments H. pylori infection 06/19/2011 DX:H. pylori infection Dysphagia 06/19/2011 DX:Dysphagia Family History Medical History Relation Name Comments Diabetes Maternal Grandmother Hypertension Maternal Grandmother Thyroid disease Maternal Grandmother Hypertension Mother Relation Name Status Comments Maternal Grandmother Mother Social History Tobacco Use Types Packs/Day Years Used Date Smoking Tobacco: Former Cigarettes Q uit: 11/14/2010 Smokeless Tobacco: Former Alcohol Use Standard Drinks/Week Comments No 0 (1 standard drink = 0.6 oz pur e alcohol) Comments Unknown Sex and Gender Information Value Date Recorded Sex Assigned at Not on file Legal Sex Female 6:21 PM EST Gender Identity Not on file Sexual Orientation Not on file Obstetrics History Last Filed Vital Signs Vital Sign Reading Time Taken Comments Blood Pressure 117/80 04/24/2023 11:26 AM EST Pulse 76 04/24/2023 11:26 AM EST Temperature - - Respiratory Rate - - Oxygen Saturation - - Inhaled Oxygen Concentration - - Weight 77.9 kg (171 lb 12.8 oz) 024 11:26 AM EST Height 170.2 cm (5' 7 ) 04/24/2023 11:2 6 AM EST Body Mass Index 26.91 04/24/2023 11:26 AM EST Plan of Treatment Upcoming Encounters Date Type Department Care Team (Late st Contact Info) Description 01/02/2025 12:30 PM EDT Consult Olga Lidia Cook MD [facility] [address] [place] [address] Olga Lidia Cook MD [address] [place] [phone] 01/12/2025 2:45 PM EDT Consult Orthopedic Surgery - [place] [id number] [phone] Jeovany Bonner DPM [address] [facility] [address] [place] [id number] Health Maintenance Due Date Last Done Comments Breast Cancer Screening 1969 Colorectal Cancer Screening: Colonoscopy 1969 DTaP,Tdap,and Td Vaccines (1 - Tdap) 1988 Hepatitis A Vaccines (1 of 2 - Risk 2-dose series) 1988 Hepatitis B Vaccines (1 of 3 - 19+ 3-dose series) 1988 Cervical Cancer Screening: P ap Smear 1990 Pneumococcal Vaccine: 50+ Ye ars (1 of 1 - PCV) 2019 Zoster Vaccines (1 of 2) 2019 HIV Screening 02/15/2022 Hepatitis C Screening 02/15/2022 Social Influencers of Health Screening 02/15/2022 Depression Screening 03/16/2024 COVID-19 Vaccine (1 - 2023-2 5 season) 2024 Influenza Vaccine (#1) 2024 RSV Immunization Adult Patie nts (1 - 1-dose 75+ series) 2044 HIB Vaccines Aged Out No longer eligi ble based on patient's age to complete this topic HPV Vaccines Aged Out No longer eligi ble based on patient's age to complete this topic IPV Vaccines Aged Out No longer eligi ble based on patient's age to complete this topic MMR Vaccines Aged Out No longer eligi ble based on patient's age to complete this topic Meningococcal ACWY Vaccine Aged Out N o longer eligible based on patient's age to complete this topic Meningococcal B Vaccine Aged Out No l onger eligible based on patient's age to complete this topic RSV Immunization Patients Un darnell 20 months Aged Out No longer eligible b ased on patient's age to complete this topic Varicella Vaccines Aged Out No longer eligible based on patient's age to complete this topic Insurance [place] - [place] Care Teams Disc Ruler Operator Relationship Specialty Start Date End Date Aashish Martin [address] [place], [place] PCP - General Internal Medicine 08/03/20
[2024-12-14 18:49] LABS: Alanine Aminotransferase 31 U/L (0-31); Albumin Level 4.7 g/dL (3.5-5.0); Alkaline Phosphatase 89 U/L (39-117); Anion Gap 12 (12-20); Aspartate Amino Transferase 35 U/L (5-31); Blood Urea Nitrogen 21 mg/dL (9-16); Calcium 9.2 mg/dL (8.4-10.2); Carbon Dioxide 24 mmol/L (22-29); Chloride 108 mmol/L (96-108); Cholesterol 339 mg/dL (<200); Estimated Glomerular Filt Rate 43; HDL Cholesterol 74 mg/dL (>40); Potassium 4.4 mmol/L (3.3-5.1); Sodium 140 mmol/L (135-145); Total Protein 7.8 g/dL (6.5-8.0); Triglycerides 174 mg/dL (<150)
[2024-12-15 05:30] LABS: Hemoglobin A1C 136.6110 umol/L; Total Hemoglobin (HGBA1C) 3623.7057 umol/L
== END 2024-12-14 15:34 | disposition home or self-care (01) ==
LOC: HO.CHCLDS 15:33
PROVIDERS: Internal Medicine; Visit Provider Internal Medicine
DX: H53.9 Unspecified visual disturbance (principal); E03.8 Other specified hypothyroidism
CPT/HCPCS: 36415; 80053; 80061; 83036; 84443

== ENCOUNTER 2025-02-21 12:10 | Outpatient (REF) | payer MEDICAID, SELFPAY ==
[2025-02-21 16:17] LABS: Bacterial Vaginosis PCR POSITIVE (Negative); Candida Group PCR NOT DETECTED (Not Detect); Candida glab krusei PCR NOT DETECTED (Not Detect); Trichomonas vaginalis PCR NOT DETECTED (Not Detect)
== END 2025-02-21 12:11 | disposition home or self-care (01) ==
LOC: HO.CHCLNP 12:10
PROVIDERS: Visit Provider Family Medicine
DX: Z12.4 Encounter for screening for malignant neoplasm of cervix (principal)
CPT/HCPCS: 81515

== ENCOUNTER 2025-02-22 13:24 | Outpatient (REF) | payer MEDICAID, SELFPAY ==
[2025-02-24 02:43] LABS: C. trachomatis RNA TMA NOT DETECTED (NOT DETECTED); N. gonorrhoeae RNA TMA NOT DETECTED (NOT DETECTED); Trichomonas (NAAT) NOT DETECTED (NOT DETECTED)
== END 2025-02-22 13:25 ==
LOC: HO.LNP 13:24
PROVIDERS: Visit Provider Family Medicine
DX: Z12.4 Encounter for screening for malignant neoplasm of cervix (principal); Z20.2 Contact with and (suspected) exposure to infections with a predominantly sexual mode of transmission
CPT/HCPCS: 87491; 87591; 87626; 87661; 88175